=== PATIENT | male | born 1990 | race Caucasian/White ===

== ENCOUNTER 2021-04-21 08:52 | Emergency (ER) | payer SELFPAY ==
[~2021-04-21] VITALS: Ht 170.2 cm; Wt 77.1 kg
[~2021-04-21 08:52] MED LIST: LAM100T; PAXIL; TRAZADONE
[2021-04-21] MEDS ORDERED: SODIUM CHLORIDE 0.9% 1,000 ML IV ONE ×2 (09:15)
[2021-04-21] MEDS ORDERED: InsuLIN REG 1unit/0.01ml Soln (100units/ml) IV ONE (09:15)
[2021-04-21 09:28] LABS: Basophils # (auto) 0.1 10 ^3/uL (0-0.2); Basophils % (auto) 0.7 % (0.0-2.0); Eosinophils # (auto) 0.3 10 ^3/uL (0-0.8); Eosinophils % (auto) 4.7 % (0.0-7.0); Hematocrit 35.5 % (41.0-53.0); Hemoglobin 12.2 g/dL (13.5-17.5); Lymphocytes # (auto) 2.6 10 ^3/uL (0.4-5.4); Lymphocytes % (auto) 35.6 % (10.0-50.0); Mean Corpuscular Hemoglobin 28.1 pg (28.0-32.0); Mean Corpuscular Hgb Conc. 34.5 g/dL (32.0-36.0); Mean Corpuscular Volume 81.5 fL (80.0-100.0); Monocytes # (auto) 0.4 10 ^3/uL (0-1.3); Monocytes % (auto) 4.9 % (0.0-12.0); Neutrophils # (auto) 3.9 10 ^3/uL (1.6-8.6); Neutrophils % (auto) 54.1 % (37.0-80.0); Nucleated Red Blood Cells % 0.1 %; Red Blood Cells 4.35 10^6/uL (4.5-5.90); White Blood Cell 7.3 10^3/uL (4.4-10.8)
[2021-04-21 09:49] LABS: Bilirubin, Total 0.2 mg/dL (0.2-1.0); Total Protein 6.7 g/dL (6.4-8.2)
[2021-04-21 10:24] VITALS: BP 98/68
[2021-04-21 10:54] LABS: Urine Bacteria NONE SEEN /hpf (None Seen); Urine Blood 1+ /uL (Negative); Urine Mucus FEW (None Seen); Urine Specific Gravity 1.006 (1.001-1.035); Urine WBC 1 /hpf (0 - 3)
== END 2021-04-21 11:54 | disposition home or self-care (01) ==
LOC: ER 08:52
DX: E11.65 Type 2 diabetes mellitus with hyperglycemia (principal); I10 Essential (primary) hypertension; Z88.0 Allergy status to penicillin; Z79.899 Other long term (current) drug therapy
CPT/HCPCS: 36415; 80053; 81001; 82962; 85025; 85049; 96361; 96374; 99283; J1815; J7030

== ENCOUNTER 2024-03-25 08:31 | Emergency (ER) | payer MEDICAID ==
[~2024-03-25] VITALS: Ht 170.2 cm; Wt 77.2 kg
[2024-03-25 09:41] VITALS: BP 157/92; PULSE 93; RESP 16; TEMP 98.1; O2SAT 97
[2024-03-25] MEDS ORDERED: LIDOCAINE W/ EPINEPHRINE 1.5 % INJ 5ML AMP IJ ONE (10:00)
[2024-03-25] MEDS: LIDOCAINE W/ EPINEPHRINE 1% 20ML VIAL ID ONE (10:37)
[2024-03-25] MEDS: LIDOCAINE W/ EPINEPHRINE 2% INJ 20ML VIAL IJ ONE (10:40)
[2024-03-25] MEDS: LIDOCAINE W/ EPINEPHRINE 2% INJ 20ML VIAL ONE (10:40)
[2024-03-25] MEDS ORDERED: CEPH500C PO (11:26)
[2024-03-25] MEDS ORDERED: NABU-72 PO (11:26)
[2024-03-25] MEDS ORDERED: BACDST PO (11:26)
[2024-03-25] MEDS: cefTRIAXone SOD 500 MG VL IM ONE (11:41)
[2024-03-25] MEDS: cefTRIAXone SOD 1,000 MG VL IM ONE (11:41)
== END 2024-03-25 11:50 | disposition home or self-care (01) ==
LOC: ER 08:31
DX: L02.213 Cutaneous abscess of chest wall (principal); M25.512 Pain in left shoulder; I10 Essential (primary) hypertension; E11.9 Type 2 diabetes mellitus without complications; Z88.0 Allergy status to penicillin; Z79.899 Other long term (current) drug therapy
CPT/HCPCS: 10060; 73030; 96372; 99283; J0696

== ENCOUNTER 2024-03-27 07:20 | Emergency (ER) | payer MEDICAID ==
[~2024-03-27] VITALS: Ht 170.2 cm; Wt 80.5 kg
[~2024-03-27 07:20] MED LIST changes: +BACDST PO; +CEPH500C PO; +NABU-72 PO
[2024-03-27 08:17] VITALS: BP 173/92; PULSE 92; RESP 16; TEMP 97.8; O2SAT 98
== END 2024-03-27 08:25 | disposition home or self-care (01) ==
LOC: ER 07:20
DX: Z48.817 Encounter for surgical aftercare following surgery on the skin and subcutaneous tissue (principal); E11.9 Type 2 diabetes mellitus without complications; I10 Essential (primary) hypertension
CPT/HCPCS: 99281; J7030

== ENCOUNTER 2024-03-30 09:58 | Emergency (ER) | payer MEDICAID ==
[~2024-03-30] VITALS: Ht 170.2 cm; Wt 78.6 kg
[2024-03-30 10:36] VITALS: BP 147/87; PULSE 80; RESP 16; TEMP 98.7; O2SAT 98
== END 2024-03-30 11:32 | disposition home or self-care (01) ==
LOC: ER 09:58
DX: Z48.01 Encounter for change or removal of surgical wound dressing (principal); E11.9 Type 2 diabetes mellitus without complications; I10 Essential (primary) hypertension; Z88.0 Allergy status to penicillin

== ENCOUNTER 2024-04-01 07:47 | Emergency (ER) | payer MEDICAID ==
[~2024-04-01] VITALS: Ht 170.2 cm; Wt 78.9 kg
[2024-04-01 08:17] VITALS: BP 172/91; PULSE 79; RESP 16; TEMP 98.7; O2SAT 98
[2024-04-01] MEDS ORDERED: CLIN1CAP70 PO (09:38)
== END 2024-04-01 09:43 | disposition home or self-care (01) ==
LOC: ER 07:47
DX: E10.9 Type 1 diabetes mellitus without complications (principal); L02.213 Cutaneous abscess of chest wall; Z48.00 Encounter for change or removal of nonsurgical wound dressing; I10 Essential (primary) hypertension; Z88.0 Allergy status to penicillin
CPT/HCPCS: 10060; 87205